=== PATIENT | male | born 1980 | race Caucasian/White ===

== ENCOUNTER → 2018-09-03 | Outpatient (CLI) | payer OTHER ==
[~2018-09-03] MED LIST: BACTRIM DS 8001 TA1 PO; CIPRO500 MG PO; CLEOCIN150 MG PO; KEFLEX500 MG PO; MOTRIN800 MG PO; NKHM; PERCOCET 325 MG1 TA3 PO; PERCOCET 325 MG1 TA7 PO; SEPTRA DS 800 M1 TAB PO; TRAMADOL HCL50 MG PO; VICODIN 5/500 505 MG PO; VICODIN 500 MG-1 TAB PO
== END | disposition home or self-care (01) ==
LOC: RAD 16:37
DX: M54.5 Low back pain (principal)

== ENCOUNTER 2020-02-14 10:39 | Emergency (ER) | payer OTHER ==
[~2020-02-14] VITALS: Ht 177.8 cm; Wt 68.0 kg
[2020-02-14 11:43] LABS: BILIRUBIN NEGATIVE (NEGATIVE); BLOOD TRACE-INTACT (NEGATIVE); CLARITY SL CLOUDY (CLEAR); COLOR YELLOW (YELLOW); GLUCOSE NEGATIVE (NEGATIVE); KETONE NEGATIVE (NEGATIVE); PH 8.5 (5.0-9.0); UROBILINOGEN 0.2 E.U./dl (0.2-1.0)
[2020-02-14 11:44] LABS: BACTERIA TRACE; EPITHELIAL CELLS 0-2; LEUKO ESTERASE NEGATIVE (NEGATIVE); MUCOUS TRACE; NITRITE NEGATIVE (NEGATIVE); WBC 0-2 wbc/hpf (0-5)
[2020-02-14] MEDS ORDERED: NORCO 5-325 TA1 EACH PO (13:18)
[2020-02-14] MEDS ORDERED: Motrin,Rufen800 MG PO (13:18)
== END 2020-02-14 13:20 | disposition home or self-care (01) ==
LOC: ED 10:39
PROVIDERS: Emergency Medicine
DX: S30.22XA Contusion of scrotum and testes, initial encounter (principal); Z88.0 Allergy status to penicillin; Z91.041 Radiographic dye allergy status; Z79.2 Long term (current) use of antibiotics; W10.8XXA Fall (on) (from) other stairs and steps, initial encounter; Y93.39 Activity, other involving climbing, rappelling and jumping off; Y92.89 Other specified places as the place of occurrence of the external cause; Y99.8 Other external cause status

== ENCOUNTER 2020-06-05 11:20 | Emergency (ER) | payer OTHER ==
[~2020-06-05] VITALS: Ht 177.8 cm; Wt 68.9 kg
[~2020-06-05 11:20] MED LIST changes: +Motrin,Rufen800 MG PO; +NORCO 5-325 TA1 EACH PO
== END 2020-06-05 13:13 | disposition home or self-care (01) ==
LOC: ED 11:20
DX: T63.441A Toxic effect of venom of bees, accidental (unintentional), initial encounter (principal); Z79.899 Other long term (current) drug therapy; Y92.89 Other specified places as the place of occurrence of the external cause

== ENCOUNTER 2020-08-27 19:06 | Emergency (ER) | payer OTHER ==
[~2020-08-27] VITALS: Ht 175.2 cm; Wt 81.6 kg
[2020-08-27] MEDS ORDERED: ANTIBIOTIC28.4 GM T (19:58)
[2020-08-27] MEDS ORDERED: CEPHALEXIN500 M1 PO (19:58)
== END 2020-08-27 20:43 | disposition home or self-care (01) ==
LOC: ED 19:06
DX: S61.011A Laceration without foreign body of right thumb without damage to nail, initial encounter (principal); Z88.0 Allergy status to penicillin; W23.0XXA Caught, crushed, jammed, or pinched between moving objects, initial encounter; Y93.89 Activity, other specified; Y92.89 Other specified places as the place of occurrence of the external cause; Y99.8 Other external cause status

== ENCOUNTER 2021-02-24 18:49 | Emergency (ER) | payer OTHER ==
[~2021-02-24] VITALS: Wt 70.8 kg
[~2021-02-24 18:49] MED LIST changes: +ANTIBIOTIC28.4 GM T; +CEPHALEXIN500 M1 PO
[2021-02-24] MEDS ORDERED: CEPHALEXIN500 M1 PO (21:20)
== END 2021-02-24 21:28 | disposition home or self-care (01) ==
LOC: ED 18:49
DX: S02.2XXA Fracture of nasal bones, initial encounter for closed fracture (principal); F17.200 Nicotine dependence, unspecified, uncomplicated; Z88.0 Allergy status to penicillin; V86.56XA Driver of dirt bike or motor/cross bike injured in nontraffic accident, initial encounter; Y93.55 Activity, bike riding; Y92.413 State road as the place of occurrence of the external cause; Y99.9 Unspecified external cause status

== ENCOUNTER → 2022-05-20 | Outpatient (CLI) | payer OTHER | END | disposition home or self-care (01) | LOC: RAD 11:44 | PROVIDERS: ATTEND Family Medicine | DX: M79.641 Pain in right hand (principal) ==